=== PATIENT | female | born 1970 | race Caucasian/White ===

== ENCOUNTER 2016-09-28 14:25 | Emergency (ER) | payer OTHER ==
[2016-09-28 14:51] VITALS: BP 142/70
--- NOTE | 2016-09-28 15:43 | ED GENERAL ADULT ---
See Addendum History of Present Illness General Chief Complaint: General Adult Stated Complaint: MED REFILL Source: patient, family, old records Exam Limitations: no limitations Vital Signs & Intake/Output Vital Signs & Intake/Output Vital Signs Date Time Temp Pulse Resp B/P Pulse O2 O2 Flow FiO2 Ox Delivery Rate 09/28 1644 99 Room Air 09/28 1451 99.0 89 20 142/70 100 Room Air Allergies Coded Allergies: No Known Allergies (09/28/16) Reconcile Medications Alprazolam 2 MG TABLET 1 TAB PO BIDP PRN ANXIETY Ibuprofen 800 MG TABLET 1 TAB PO BID PAIN Trazodone HCl 100 MG TABLET 1 TAB PO QPM INSOMNIA Valacyclovir HCl (Valacyclovir) 500 MG TABLET 4 TAB PO BID VIRAL Triage Note: PER PT SCHEDULED TO START IOP ON 10/06 BUT RAN OUT OF MEDS NEEDS TRAZADONE 100 MG HS,LAMOTRIGINE 100 MG DAILY,MOTRIN 800 MG BIDXANAX 2 MG BID,VALACYCLOVIR 500 MG 4 TAB BIDRISPERADONE 2 MG DAILY. SOME PRESCRIPTIONS ARE OLD Triage Nurses Notes Reviewed? yes : No Patient currently breastfeeds: No HPI: 45-year-old woman with a history of multiple psychiatric disorders seen for evaluation requesting medication refill. She has reportedly been followed by Dr. Hicks for many years in regards to prescribing of her psychiatric medications. He reportedly will no longer fill her medication stating that she needs to be followed up by a psychiatrist. Patient states that she ran out of her medication last night and desperately needs refill in order to make it to her appointment on 10/06/16 with the [place] [facility] department. She expresses a great deal of tremulousness and anxiety and uncertainty regarding her future prescribing. Otherwise she denies any complaints. Additionally she denies any headache, fever, chills, chest pain, shortness breath, nausea, vomiting, diarrhea. (DIVYA ZHANG MD) Past History Travel History Traveled to [place] past 21 day No Medical History Any Pertinent Medical History? see below for history Neurological: NONE EENT: NONE Cardiovascular: NONE Respiratory: NONE Gastrointestinal: NONE Hepatic: NONE Renal: NONE Musculoskeletal: NONE Psychiatric: ANXIETY, DEPRESSION Endocrine: NONE Surgical History Surgical History: non-contributory Psychosocial History What is your primary language American Tobacco Use: Quit <30 days ago Family History Hx Contributory? Yes (DIVYA ZHANG MD) Review of Systems Review of Systems Constitutional: Reports: see HPI. (DIVYA ZHANG MD) Physical Exam Physical Exam General Appearance: well developed/nourished, anxious Comments: General -well-developed, well-nourished anxious middle-aged woman in no acute distress HEENT - NCAT, PERRL, EOMI, anicteric sclera Cardio - S1, S2 w/o murmurs/gallops/rubs Resp - CTA bilaterally w/o wheezing/rhochi/crackles GI - soft, nontender, nondistended, bowel sounds present Neuro - Awake and alert, CN II - XII grossly intact Extremities - no edema, pulses intact Core Measures ACS in differential dx? No CVA/TIA Diagnosis: No Severe Sepsis Present: No Septic Shock Present: No (DIVYA ZHANG MD) Progress Differential Diagnoses I considered the following diagnoses in my evaluation of the patient: Bipolar disorder, anxiety, depression Plan of Care: Patient seen requesting medication rule stating that her PCP will no longer be prescribing her psychiatric medications. She states that she last took her medications last evening and " isn't doing well". Medication claim history demonstrates that her Lomotil to [place] and risperidone were last filled on . Her pharmacy was called and it was confirmed that these medications are waiting to case picker. Her other medication request were reviewed and it demonstrates that she has not filled these medications since 08/31/16. Short- term bridge scripts were provided so that patient may attend her appointment on 10/06/16 with intensive outpatient psychiatry for further prescription needs. Initial ED EKG: none (DIVYA ZHANG MD) Departure Departure Disposition: HOME OR SELF CARE Condition: Stable Clinical Impression Primary Impression: Medication refill Secondary Impressions: Bipolar depression Referrals: KRISSY AVILA,BHAVIK Hernandez (PCP/Family) Departure Forms: Customer Survey General Discharge Information Prescriptions: Current Visit Scripts Trazodone HCl 1 TAB PO QPM #8 TAB Ibuprofen 1 TAB PO BID #16 Alprazolam 1 TAB PO BIDP PRN ANXIETY #16 TAB Valacyclovir HCl (Valacyclovir) 4 TAB PO BID #64 (DIVYA ZHANG MD) PA/BLANKET WINDER OPERATOR Co-Sign Statement Statement: ED Attending supervision documentation- [] I saw and evaluated the patient. I have also reviewed all the pertinent lab results and diagnostic results. I agree with the findings and the plan of care as documented in the PA's/BLANKET WINDER OPERATOR's documentation. [X] I have reviewed the ED Record and agree with the PA's/BLANKET WINDER OPERATOR's documentation. [] Additions or exceptions (if any) to the PAs/BLANKET WINDER OPERATOR's note and plan are summarized below: [] (ROWAN AVILA,WINSTON) Critical Care Note Critical Care Note Critical Care Time: non-applicable (LEATHA AVILA,DIVYA)
[2016-09-28] MEDS ORDERED: TRAZODONE HCL100 M1 PO (16:27)
[2016-09-28] MEDS ORDERED: VALACYCLOVIR500 M1 PO (16:27)
[2016-09-28] MEDS ORDERED: IBUPROFEN800 M1 PO (16:27)
[2016-09-28] MEDS ORDERED: ALPRAZOLAM2 M2 PO (16:27)
== END 2016-09-28 17:12 ==
LOC: ERH 14:25
DX: F31.9 Bipolar disorder, unspecified (principal)
CPT/HCPCS: 99281

== ENCOUNTER 2016-11-10 18:26 | Emergency (ER) | payer OTHER ==
[~2016-11-10 18:26] MED LIST: ALPRAZOLAM2 M2 PO; IBUPROFEN800 M1 PO; TRAZODONE HCL100 M1 PO; VALACYCLOVIR500 M1 PO
[2016-11-10 18:57] VITALS: BP 122/76
[2016-11-10] MEDS ORDERED: FIORICET 50-301 EACH PO (20:08)
[2016-11-10] MEDS ORDERED: IBUPROFEN800 M1 PO (20:08)
[2016-11-10] MEDS ORDERED: XANAX1 M1 PO (20:08)
--- NOTE | 2016-11-10 20:09 | ED PSYCHIATRIC COMPLAINT ---
History of Present Illness General Chief Complaint: General Adult Stated Complaint: MED REFILL Source: patient, old records Exam Limitations: no limitations Vital Signs & Intake/Output Vital Signs & Intake/Output Vital Signs Date Time Temp Pulse Resp B/P Pulse O2 O2 Flow FiO2 Ox Delivery Rate 11/10 1857 97.2 78 22 122/76 98 Allergies Coded Allergies: No Known Allergies (09/28/16) Reconcile Medications Alprazolam (Xanax) 1 MG TABLET 1 TAB PO BIDP PRN anxiety Alprazolam 2 MG TABLET 1 TAB PO BIDP PRN ANXIETY Butalb/Acetaminophen/Caffeine (Fioricet 50-300-40 MG Capsule) 50 MG-300 MG-40 MG CAPSULE 1 TAB PO Q6H PRN HEADACHE Ibuprofen 800 MG TABLET 1 TAB PO TID PRN pain Ibuprofen 800 MG TABLET 1 TAB PO BID PAIN Trazodone HCl 100 MG TABLET 1 TAB PO QPM INSOMNIA Valacyclovir HCl (Valacyclovir) 500 MG TABLET 4 TAB PO BID VIRAL Triage Note: PER PT HAS AN APPT 11/17/16 FOR MEDS BUT NEED REFILLS FOR THEM NOW XANAX AND MOTRIN. Triage Nurses Notes Reviewed? yes HPI: 46-year-old female here with complaints of severe anxiety requesting medication refill of her antianxiety medication. She takes Xanax 2 mg twice a day. She was cut off from her primary care doctor and then saw a nurse practitioner who stopped prescribing her the Xanax for unknown reasons. Last prescription ran out 2 weeks ago and patient has been intermittently taking some of her friend's Xanax. She complains of increased stress in her life. She also has a migraine headache right-sided temporal which is moderate to severe and ibuprofen has been minimally effective. She is requesting Percocet for this. I reviewed her [employer]ICIST website and she has had a consistent prescription of benzodiazepines for the last year. Last prescription was filled 2 weeks ago (KADIE MEZA,IAN) Past History Travel History Traveled to [place] past 21 day No Medical History Any Pertinent Medical History? see below for history Neurological: migraine EENT: NONE Cardiovascular: NONE Respiratory: NONE Gastrointestinal: NONE Hepatic: NONE Renal: NONE Musculoskeletal: NONE Psychiatric: ANXIETY, DEPRESSION Endocrine: NONE Surgical History Surgical History: non-contributory Psychosocial History What is your primary language [place]ian Tobacco Use: Current Daily Use Daily Tobacco Use Amount/Type: => 5 Cigarettes daily Family History Hx Contributory? No (IAN EDMONDSON) Review of Systems Review of Systems Constitutional: Reports: see HPI. EENTM: Reports: no symptoms. Respiratory: Reports: no symptoms. Cardiovascular: Reports: no symptoms. GI: Reports: no symptoms. Genitourinary: Reports: no symptoms. Musculoskeletal: Reports: no symptoms. Skin: Reports: no symptoms. Neurological/Psychological: Reports: anxiety, headache. Hematologic/Endocrine: Reports: no symptoms. Immunologic/Allergic: Reports: no symptoms. All Other Systems: Reviewed and Negative (IAN EDMONDSON) Physical Exam Physical Exam General Appearance: well developed/nourished Neurological/Psychiatric: no motor/sensory deficits, awake, agitated, normal mood/affect, calm, exposure machine operator II-XII nml as tested Comments: Well-developed well-nourished no apparent distress. HEENT: Atraumatic, extraocular motion intact Neck: Supple, no lymphadenopathy Respiratory: No respiratory distress Extremities: No edema, full range of motion Neuro: Alert and oriented x3 Skin: Warm and dry, no rash on exposed skin SAD PERSONS Done? patient not suicidal (IAN EDMONDSON) Progress Differential Diagnosis: dementia, drug intoxication, drug overdose, drug withdrawal, electrolyte abnormality, encephalitis, hypoglycemia, hypothyroidism, IC hem/mass/tumor, meningitis Plan of Care: Discussed with patient concerns of abuse potential with benzodiazepines. I will give her a 1 mg tablet twice a day for 1 week to help her taper down from her usual dosing. She has appointment to see a primary care doctor in the following week. We'll give her Fioricet for her headaches and ibuprofen for headaches as well. (IAN EDMONDSON) Departure Departure Disposition: HOME OR SELF CARE Condition: Stable Clinical Impression Primary Impression: Anxiety Secondary Impressions: Migraine headache Qualifiers: Migraine type: without aura Status migrainosus presence: without status migrainosus Intractability: not intractable Qualified Code: G43.009 - Migraine without aura, not intractable, without status migrainosus Referrals: UNKNOWN (PCP/Family) Additional Instructions: Take medications as directed Departure Forms: Customer Survey General Discharge Information Prescriptions: Current Visit Scripts Ibuprofen 1 TAB PO TID PRN pain #30 TAB Alprazolam (Xanax) 1 TAB PO BIDP PRN anxiety #14 TAB Butalb/Acetaminophen/Caffeine (Fioricet 50-300-40 MG Capsule) 1 TAB PO Q6H PRN HEADACHE #12 (KADIE MEZA,IAN) PA/LAB ASSOCIATE Co-Sign Statement Statement: ED Attending supervision documentation- [] I saw and evaluated the patient. I have also reviewed all the pertinent lab results and diagnostic results. I agree with the findings and the plan of care as documented in the PA's/LAB ASSOCIATE's documentation. x I have reviewed the ED Record and agree with the PA's/LAB ASSOCIATE's documentation. [] Additions or exceptions (if any) to the PAs/LAB ASSOCIATE's note and plan are summarized below: [] (EFRAÍN AVILA,TYLER)
== END 2016-11-10 21:53 ==
LOC: ERH 18:26
DX: F41.9 Anxiety disorder, unspecified (principal); G43.909 Migraine, unspecified, not intractable, without status migrainosus
CPT/HCPCS: 99281